=== PATIENT | female | born 1990 | race Caucasian/White ===

== ENCOUNTER 2017-04-04 18:46 | Outpatient (CLI) | payer MEDICAID | END 2017-04-04 18:47 | disposition EMS.NT | LOC: EMS 18:46 | PROVIDERS: ATTEND Surgery | DX: R23.2 Flushing (principal) ==

== ENCOUNTER 2017-04-04 19:44 | Emergency (ER) | payer MEDICAID ==
[2017-04-04 19:55] VITALS: BP 154/99
[2017-04-04 21:20] LABS: BILIRUBIN,URINE NEGATIVE (NEGATIVE)
[2017-04-04 21:22] LABS: HCG UR QUAL NEGATIVE; UA CHARGE (STRIP ONLY) YES; UR CULTURE IF IND NOT INDICATED
--- NOTE | 2017-04-04 21:36 | ED Physician Documentation ---
PD HPI SYNCOPE - Stated complaint Stated Complaint: SYNCOPAL EPISODE - Chief complaint Chief Complaint: General - History obtained from History obtained from: Patient, Friend - History of Present Illness Witnessed: Witnessed Timing - onset: Today Duration: Seconds Preceding symptoms: Nausea / vomiting, Light headed Associated symptoms: Diaphoresis Contributing factors: Decreased PO intake Injury occurred: None Similar symptoms before: Has not had sx before Recently seen: Not recently seen - Additional information Additional information: Patient is a 26 year old female who is presenting the emergency department for a near syncopal episode. Patient states that this evening she got dizzy and nauseated and felt like she was going to pass out. Patient states that the feelings lasted for about a minute and went away on its own. Upon initial evaluation in the emergency department patient states that she was feeling better and her symptoms had resolved. patient states that she has switched to a vegan diet and has lost over 30 pounds recently. Review of Systems Constitutional: denies: Fever, Chills Eyes: denies: Loss of vision, Photophobia Ears: denies: Ear pain, Drainage/discharge Nose: denies: Rhinorrhea / runny nose, Congestion Throat: denies: Sore throat Cardiac: denies: Chest pain / pressure, Palpitations, Calf pain Respiratory: denies: Cough, Wheezing GI: reports: Nausea. denies: Vomiting Skin: denies: Abrasion (s), Laceration (s) Musculoskeletal: denies: Neck pain Neurologic: denies: Syncope, Seizure, Confused, Headache, Head injury, LOC Immunocompromised: denies: Immunocompromised PD PAST MEDICAL HISTORY - Allergies Allergies/Adverse Reactions: Allergies Allergy/AdvReac Type Severity Reaction Status Date / Time No Known Drug Allergies Allergy Verified 04/04/17 19:54 PD ED PE NORMAL - Vitals Vital signs reviewed: Yes - General General: Alert and oriented X 3, No acute distress, Well developed/nourished - HEENT HEENT: Atraumatic, PERRL - Neck Neck: Supple, no meningeal sign - Cardiac Cardiac: RRR, No murmur - Respiratory Respiratory: No respiratory distress, Clear bilaterally - Abdomen Abdomen: Soft, Non tender, Non distended - Derm Derm: Normal color, Warm and dry, No rash - Extremities Extremities: No deformity, No edema, No calf tenderness / cord - Neuro Neuro: Alert and oriented X 3, No motor deficit, No sensory deficit, Normal speech - Psych Psych: Normal mood, Normal affect PD ED PE EXPANDED - HEENT HEENT: Dry mucous membranes Results - Vitals Vitals: Vital Signs - 24 hr 04/04/17 19:51 Temperature 36.3 C L Heart Rate 69 Respiratory 17 Rate Blood Pressure 154/99 H O2 Saturation 100 Oxygen O2 Source Room air - EKG (time done) 2100 Rate: Rate (enter#) (72) Rhythm: NSR [place]: Normal Intervals: Normal PA QRS: Normal Ischemia: T wave inversion Compare to prior EKG: Old EKG unavailable - Labs Labs: Laboratory Tests 04/04/17 21:10 Urine Color STRAW Urine Clarity CLEAR Urine pH 6.0 Ur Specific [place] <=1.005 Urine Protein NEGATIVE Urine Glucose (UA) NEGATIVE Urine Ketones NEGATIVE Urine Occult Blood NEGATIVE Urine Nitrite NEGATIVE Urine Bilirubin NEGATIVE Urine Urobilinogen 0.2 (NORMAL) Ur Leukocyte Esterase NEGATIVE Ur Microscopic Review NOT INDICATED Urine Culture Comments NOT INDICATED Urine HCG, Qual NEGATIVE PD MEDICAL DECISION MAKING - ED course Complexity details: reviewed results, re-evaluated patient, considered differential, d/w patient ED course: Patient was seen and examined at bedside. Patient was feeling better. ekg was performed and was sinus. patient's diagnostics were within normal limits. patient had a negative prado kasey syncope score. Patient required no further work up and was stable for discharge with outpatient follow up. Departure - Departure Disposition: 01 Home, Self Care Clinical Impression: Vasovagal near syncope Condition: Good Instructions: ED Near Syncope Vasovagal Follow-Up: primary,care provider [Other] - Within 1 week Comments: Your diagnostics today were within normal limits. The near syncope could have been related to the weight loss, diet, possibly allergic reaction, or just a vaso-vagal episode. You should make sure you get adequate protein and hydration. You should follow up with your pmd. You can return to the emergency department at any time for new, worsening or uncontrollable symptoms. Discharge Date/Time: 04/04/17 22:06
== END 2017-04-04 22:06 | disposition home or self-care (01) ==
LOC: ED 19:44
DX: R55 Syncope and collapse (principal)
CPT/HCPCS: 81001; 81003; 81025; 87086; 93005; 99283; 99284

== ENCOUNTER 2017-04-25 13:55 | Outpatient (CLI) | payer MEDICAID ==
[2017-04-25 19:00] LABS: BASOPHILS % (AUTO) 0.6 %; EOSINOPHILS # (AUTO) 0.2 10^3/uL (0.0-0.7); EOSINOPHILS % (AUTO) 2.8 %; HCT - HEMATOCRIT 39.8 % (37.0-47.0); HGB - HEMOGLOBIN 13.1 g/dL (12.0-16.0); LYMPHOCYTES # (AUTO) 2.5 10^3/uL (1.5-3.5); LYMPHOCYTES % (AUTO) 42.7 %; MEAN CORPUSCULAR HEMOGLOBIN 26.7 pg (27.0-31.0); MEAN CORPUSCULAR HGB CONC 32.8 g/dL (32.0-36.0); MEAN CORPUSCULAR VOLUME 81.3 fL (81.0-99.0); MEAN PLATELET VOLUME 9.7 fL (7.9-10.8); MONOCYTES # (AUTO) 0.5 10^3/uL (0.0-1.0); MONOCYTES % (AUTO) 8.5 %; NEUTROPHILS # (AUTO) 2.7 10^3/uL (1.5-6.6); NEUTROPHILS % (AUTO) 45.4 %; NUCLEATED RED BLOOD CELLS AUTO 0.1 /100WBC; RED CELL DISTRIBUTION WIDTH 14.2 % (12.0-15.0); UNCORRECTED WHITE BLOOD COUNT 5.9 x10^3/uL; WHITE BLOOD COUNT 5.9 x10^3/uL (4.8-10.8)
[2017-04-25 19:24] LABS: HEMOGLOBIN A1C 0.49 g/dL
[2017-04-25 19:50] LABS: ALBUMIN/GLOBULIN RATIO 1.5 (1.0-2.2); BILIRUBIN,TOTAL 0.6 mg/dL (0.2-1.0); BUN - BLOOD UREA NITROGEN < 5 mg/dL (6-20); CALCIUM 9.4 mg/dL (8.5-10.3); CARBON DIOXIDE - CO2 26 mmol/L (21-32); CHLORIDE 103 mmol/L (101-111); CHOL/HDL RATIO 2.6 (<4.4); CHOLESTEROL 118 mg/dL; CREATININE 0.6 mg/dL (0.4-1.0); GFR - MDRD 121 (>89); GLUCOSE 81 mg/dL (70-100); HDL CHOLESTEROL 45 mg/dL; LDL/HDL RATIO 1.3 (<4.4); POTASSIUM 3.8 mmol/L (3.5-5.0); SODIUM 139 mmol/L (135-145); TOTAL PROTEIN 6.6 g/dL (6.7-8.2); TRIGLYCERIDES 71 mg/dL; VLDL CHOLESTEROL 14 mg/dL
== END 2017-04-25 13:56 | disposition home or self-care (01) ==
LOC: LAB.WCP 13:55
PROVIDERS: ATTEND Family Medicine
DX: Z00.00 Encounter for general adult medical examination without abnormal findings (principal)
CPT/HCPCS: 36415; 80053; 80061; 83036; 84443; 85025